=== PATIENT | female | born 1955 | race Caucasian/White ===

== ENCOUNTER 2017-04-29 10:25 | Emergency (ER) | payer MEDICAID ==
[2017-04-29 10:32] VITALS: TEMP 97.9
--- NOTE | 2017-04-29 11:34 | EDPHY ---
H & P Stated Complaint: slipped on ice yeter; R wrist injury;sent from for eval HPI/ROS: CHIEF COMPLAINT: Right wrist injury HISTORY OF PRESENT ILLNESS: The patient is a 62 y/o female arriving with her family complaining of right wrist pain secondary to a fall yesterday. She was hiking and slipped, catching herself with an outstretched hand and felt immediate pain and cracking in her right wrist. She denies striking her head, losing consciousness, other injuries, weakness, or paresthesias. She treated herself with with ice and ibuprofen, but her pain was worse today so she went to urgent care. They performed an x-ray and saw triquetral and scaphoid fractures, but the patient says that provider was concerned there was some type of dislocation. She complains of 6/10 pain. She is normally healthy. Her last PO intake was 9:00. REVIEW OF SYSTEMS: A ten point review of systems was performed and is negative with the exception of the items mentioned in the HPI. Past medical history: Denies Past surgical history: Denies Family history: Noncontributory Social history: From [place]. Family at bedside. No tobacco use. General Appearance: Alert. Vital signs reviewed. BP 145/73. Head: Normocephalic, atraumatic. Eyes: Pupils equal and round. Neck: No pain with palpation of cervical spine. Respiratory: Lungs are clear to auscultation; no wheezes, rales, or rhonchi. Cardiovascular: Regular rate and rhythm; no murmur, rub, or gallop. Gastrointestinal: Abdomen is soft and nontender, no masses or organomegaly. Skin: Warm and dry, no rashes on exposed skin, normal color. Back: Nontender to palpation over the thoracolumbar spine. Extremities: No lower extremity edema, no calf tenderness or swelling. Right wrist splinted, normal color and sensation in exposed fingertips. Sensation intact over digits of right hand. Neurological: Alert and oriented. Moving all left arm, both legs easily and equally. Psychiatric: Normal affect. - Personal History Current Tetanus Diphtheria and Acellular Pertussis (TDAP): Yes - Medical/Surgical History Other PMH: osteopenia - Social History Smoking Status: Never smoked Constitutional: Initial Vital Signs Temperature (C) 36.6 C 04/29/17 10:27 Heart Rate 64 12/24/17 10:27 Respiratory Rate 16 04/29/17 10:27 Blood Pressure 145/73 H 04/29/17 10:27 O2 Sat (%) 97 04/29/17 10:27 O2 Delivery Mode Room Air Allergies/Adverse Reactions: No Known Allergies Allergy (Unverified 04/29/17 10:31) Home Medications: Medication Instructions Recorded Hydrocodone/APAP 5/325 [[place] 1 - 2 tab PO Q4 PRN #14 tab 04/29/17 5/325 (RX)] Medical Decision Making - Diagnostics Imaging: Discussed imaging studies w/ body recall instructor Radiologist, I viewed and interpreted images myself ED Course/Re-evaluation: This is a healthy 62 y/o female referred here by urgent care for reevaluation of fractures in her right wrist secondary to a fall yesterday. She is neurovascularly intact. She is immobilized in a cast and brings a disc of her x- ray imaging with her. Plan for pain management and review of x-rays. 75mcg IV Fentanyl administered. We were unable to view the disc she brought with her initially so I ordered a film series with her cast in place. There is no clear fracture on those films. We were then able to load outside films from urgent care, which showed triquetral avulsion fracture,l minimally displaced, and scaphoid fracture. Discussed this with the patient. The splint she arrived in had Orthoglass wrapped circumferentially around her wrist with sharp Orthoglass exposed around her hand and is not suitable for her to go home in. We will re-splint her here. Recommended following up with hand surgery in the next week. Tylenol and ibuprofen for pain. Return precautions discussed. She is comfortable with this plan. Thumb spica ortho glass splint applied by computer technical support specialist. I examined the patient after splint application. Alignment is appropriate, neurovascular intact. Sling placed. Differential Diagnosis: DDX includes buit is not limited to fracture, dislocation, sprain, laceration, contusion. - Data Points Medications Given: Discontinued Medications Hydrocodone Bitart/Acetaminophen ([place] 5/325) 2 tab PO EDNOW ONE Stop: 04/29/17 13:42 Last Admin: 04/29/17 13:52 Dose: 2 tab Fentanyl (Sublimaze) 75 mcg IVP EDNOW ONE Stop: 12/24/17 12:05 Last Admin: 04/29/17 12:13 Dose: 75 mcg Departure - Departure Disposition: Home, Routine, Self-Care Clinical Impression: Triquetral chip fracture Qualifiers: Encounter type: initial encounter Fracture type: closed Laterality: right Qualified Code(s): S62.111A - Displaced fracture of triquetrum [cuneiform] bone , right wrist, initial encounter for closed fracture Scaphoid fracture Qualifiers: Encounter type: initial encounter Scaphoid bone location: unspecified portion of scaphoid Fracture type: closed Fracture alignment: nondisplaced Laterality: right Qualified Code(s): S62.001A - Unspecified fracture of navicular [scaphoid ] bone of right wrist, initial encounter for closed fracture Condition: Good Instructions: Hydrocodone/Acetaminophen (By mouth), Wrist Fracture in Adults ( ED) Additional Instructions: 1. Keep splint dry and in place until follow up with specialist. 2. Use ibuprofen and Tylenol as directed for pain over the next several days. Elevate wrist when possible. 3. Use Vicodin as prescribed when needed for severe pain. This medication can make you drowsy. Do not drive while using it. 4. Follow up with hand specialist in the next week. You've been referred to Dr. Tatum locally. Bring x-ray discs with you. 5. Return to the ED for severe pain, discoloration of your fingertips, loss of sensation in your fingertips, or other worsening of condition. Adult Pain & Fever Control: We recommend Acetaminophen (Tylenol) and Ibuprofen (Motrin,Advil) for pain and fever control. When fever is high or pain severe, both drugs can be used at the same time, but at different intervals. Please note the time differences. Your dose is: Acetaminophen 650mg every 4 to 6 hours Ibuprofen 600mg every 6-8 hours with food Note: do not take Acetaminophen with Hydrocodone (Vicodin, Lortab) or Oxycodone (Percocet). These medications also contain Acetaminophen. No more than 3000mg of Acetaminophen should be taken in 24 hours (for an adult). Referrals: Moris Tatum MD [Medical Doctor] - As per Instructions Prescriptions: Hydrocodone/APAP 5/325 [[place] 5/325 (RX)] 1 - 2 tab PO Q4 PRN #14 tab PRN Reason: pain Report Scribed for: Nimo Jose Report Scribed by: Pippa Michael Date of Report: 04/29/17 Time of Report: 11:41 Physician Review and Approval Statement: 04/29/17 11:34 Portions of this note were transcribed by the medical health researcher. I, Dr. Nimo Jose, personally performed the history, physical exam, and medical decision- making; and confirmed the accuracy of the information in the transcribed note.
[2017-04-29] MEDS ORDERED: fentaNYL 100 MCG/2 ML INJ IVP ONE (12:04)
[2017-04-29 12:15] VITALS: BP 142/81; PULSE 61; RESP 18; O2SAT 94
[2017-04-29] MEDS ORDERED: HYDROCODONE/APAP 5/325 TAB PO ONE (13:41)
== END 2017-04-29 14:38 | disposition home or self-care (01) ==
DX: S62.111A Displaced fracture of triquetrum [cuneiform] bone, right wrist, initial encounter for closed fracture (principal); S62.001A Unspecified fracture of navicular [scaphoid] bone of right wrist, initial encounter for closed fracture; W00.0XXA Fall on same level due to ice and snow, initial encounter; Y99.8 Other external cause status; Y93.01 Activity, walking, marching and hiking
CPT/HCPCS: 96374; J3010